=== PATIENT | female | born 1995 | race Caucasian/White ===

== ENCOUNTER 2017-03-27 10:11 | Emergency (ER) | payer MEDICAID ==
[2017-03-27 10:18] VITALS: RESP 18; TEMP 97.6; O2SAT 100
[2017-03-27] MEDS ORDERED: ONDANSETRON HCL 4 MG/2 ML SOL IV ONE (10:33)
[2017-03-27] MEDS ORDERED: SODIUM CHLORIDE 0.9% 1000ML 1,000 ML IV ONE (10:33)
[2017-03-27] MEDS ORDERED: PANTOPRAZOLE SODIUM 40 MG/10 ML PDS IV ONE (10:34)
[2017-03-27] MEDS ORDERED: ONDANSETRON HCL 4 MG/2 ML SOL ONE (10:37)
[2017-03-27] MEDS ORDERED: PANTOPRAZOLE SODIUM 40 MG/10 ML PDS ONE (10:37)
[2017-03-27 10:39] LABS: BASOPHILS % (AUTO) 0 % (0-3); EOSINOPHILS % (AUTO) 0 % (0-9); HEMATOCRIT 41 % (35-47); MEAN CORPUSCULAR VOLUME 89 fL (81-99); MONOCYTES % (AUTO) 3.2 % (0-12); NEUTROPHILS % (AUTO) 86.3 % (37-80)
[2017-03-27 10:53] LABS: ALBUMIN 4.2 gm/dl (3.4-5.0); CALCIUM 9.5 mg/dl (8.5-10.1); POTASSIUM 4.7 mMol/L (3.5-5.1)
[2017-03-27 11:26] VITALS: PULSE 63
[2017-03-27 11:26] LABS: APPEARANCE,URINE Clear; BILIRUBIN,URINE NEGATIVE (NEGATIVE); COLOR,URINE Yellow; GLUCOSE, URINE (UA) NEGATIVE (NEGATIVE); KETONES,URINE 4+ (NEGATIVE); LEUKOCYTE ESTERASE ,URINE NEGATIVE (NEGATIVE); NITRATE,URINE NEGATIVE (NEGATIVE); OCCULT BLOOD,URINE NEGATIVE (NEG-TRACE); PH,URINE 5.5; UROBILINOGEN,URINE 0.2 (0.2-1.0 EU)
[2017-03-27 11:38] LABS: RBC,URINE 0-2 (0-3AV/HPF)
[2017-03-27 12:05] VITALS: BP 111/53
== END 2017-03-27 12:22 | disposition home or self-care (01) | DRG 781 ==
LOC: ED 10:11
DX: O21.0 Mild hyperemesis gravidarum (principal); Z3A.00 Weeks of gestation of pregnancy not specified
CPT/HCPCS: 80053; 81001; 84703; 85025; 87088; 99284; J2405